=== PATIENT | male | born 1980 | race Caucasian/White ===

== ENCOUNTER 2018-03-19 14:58 | Emergency (ER) | payer BC, SELFPAY ==
[2018-03-19 15:23] VITALS: BP 117/77; PULSE 84; RESP 18; TEMP 37.2; O2SAT 97; BMI 31.5
--- NOTE | 2018-03-19 15:38 | DI.RAD.S_ITS ---
PROCEDURE: XR KNEE RT 3V INDICATIONS: hot swollen knee. TECHNIQUE: 3 views of the knee were acquired. COMPARISON: None. FINDINGS: Bones: No fractures or dislocations. No suspicious bony lesions. Soft tissues: No joint effusion. No suspicious soft tissue calcifications. Mild medial soft tissue swelling is seen. IMPRESSION: Mild medial right knee soft tissue swelling. No right knee fracture or dislocation. No bony erosive changes. No significant joint effusion. Dictated by: Medhat Marte M.D. on 03/19/2018 at 16:01 Approved by: Medhat Marte M.D. on 03/19/2018 at 16:02
[2018-03-19 16:17] LABS: Add Manual Diff / Slide Review NO; Basophils Percent Auto 0.6 % (0-2); Eosinophils Percent Auto 3.4 % (2-4); Hematocrit 46.2 % (41-53); Lymphocytes Percent Auto 22.4 % (25-40); Mean Corpuscular HGB Conc 34.6 % (30-36); Mean Corpuscular Hemoglobin 29.4 PG (26-34); Monocytes Percent Auto 5.2 % (3-14); Neutrophils Absolute Auto 10100 /uL (3000-5900); Neutrophils Percent Auto 68.4 % (50-75); Platelet Count 289 X10^3/uL (150-400); Red Blood Cell Count 5.44 X10^6/uL (4.5-5.9); Red Cell Distribution Width 13.4 % (11.6-14.8); White Blood Cell Count 14.8 X10^3/uL (4.5-11.0)
[2018-03-19 16:27] LABS: Blood Urea Nitrogen 18 mg/dL (9-20); C-Reactive Protein Quant 1.2 mg/dL (<1.0); Calcium 9.9 mg/dL (8.4-10.2); Carbon Dioxide 28 mmol/L (22-32); Chloride 103 mmol/L (98-107); Estimated Glomerular Filt Rate > 60.0 mL/min (>60); Glucose 107 mg/dL (70-100); HEMOLYSIS 18 (0-50); Sodium 143 mmol/L (137-145); Uric Acid 6.6 mg/dL (3.5-8.5)
[2018-03-19 16:46] LABS: Procalcitonin < 0.05 ng/mL (<0.5)
[2018-03-19 16:47] LABS: Erythrocyte Sedimentation Rate 1 MM/HR (0-15)
--- NOTE | 2018-03-19 18:51 | ED_ITS ---
HPI - Skin/Abscess/Foreign Bdy <YEFRI Dixon - Last Filed: 03/19/18 22:18> General Chief complaint: Skin/Abscess/Foreign Body Stated complaint: RASH AND SWOLLEN RT KNEE Time Seen by Provider: 03/19/18 18:00 Source: patient Mode of arrival: ambulatory Limitations: no limitations History of Present Illness HPI narrative: 37-year-old male with history of Burkitt's lymphoma as a nonsmoker here for complaint of rash redness to his right knee over the past 3 days this. He denies any trauma to right knee pain fevers no chills. He states it feels warm to touch to the right and is itchy at times. He states that he used Benadryl and it has not helped much. He has full range of motion motion of the right knee. He denies any pain into the area. He is ambulatory into the emergency the room. He denies any other concerns or complaints. Related Data Previous Rx's Medication Instructions Recorded clindamycin HCl 300 mg PO QID #28 cap 03/19/18 Allergies Allergy/AdvReac Type Severity Reaction Status Date / Time hydromorphone [From DILAUDID] Allergy Mild Hives Verified 03/19/18 15:27 Review of Systems <YEFRI Dixon - Last Filed: 03/19/18 22:18> Constitutional Denies chills, Denies fever(s), Denies lethargy and Denies weakness Eyes Denies change in vision, Denies eye discharge, Denies irritation and Denies loss of vision ENT Ears, Nose, Mouth, and Throat: Denies change in voice, Denies neck pain and Denies sore throat Cardiovascular Denies chest pain, Denies irregular heart rhythm, Denies lightheadedness, Denies palpitations, Denies dyspnea, Denies dyspnea on exertion and Denies orthopnea Respiratory Denies cough, Denies dyspnea, Denies dyspnea on exertion and Denies wheezing Gastrointestinal Gastrointestinal: Denies abdominal pain, Denies change in bowel habits, Denies diarrhea, Denies nausea and Denies vomiting Genitourinary Denies hematuria, Denies flank pain, Denies urinary incontinence and Denies urinary urgency Musculoskeletal Denies neck pain Integumentary/Breasts Comments: Redness to right knee Neurologic Denies confusion, Denies loss of vision and Denies weakness Psychiatric Denies anxiety, Denies confusion, Denies depression, Denies homicidal ideation and Denies suicidal ideation Endocrine Denies palpitations Allergic/Immunologic Denies wheezing Exam <YEFRI Dixon - Last Filed: 03/19/18 22:18> Initial Vital Signs Initial Vital Signs: Vital Signs Temperature 99.0 F 03/19/18 15:23 Pulse Rate 84 03/19/18 15:23 Respiratory Rate 18 03/19/18 15:23 Blood Pressure 117/77 03/19/18 15:23 Pulse Oximetry 97 03/19/18 15:23 Const General: cooperative and well developed Nutritional Appearance: well nourished Orientation: alert, awake, oriented x3 and not confused HENMT Mouth: oral mucosae normal and moist mucous membranes Eyes Conjunctivae: conjunctivae normal Sclera: sclerae normal Pupils: PERRL EOM: EOM intact bilaterally Resp Effort & Inspection: normal respiratory effort, able to speak in complete sentences, no respiratory distress and no use of accessory muscles Auscultation: clear to auscultation bilaterally, no rales, no rhonchi and no wheezes Cardio Rate: regular rate Rhythm: regular rhythm Heart Sounds: no click, no gallops, no murmurs and no rubs Pulses: normal peripheral pulses GI Inspection: non-distended Palpation: soft, no hepatosplenomegaly, No guarding, No pulsatile mass and No tender Auscultation: normal bowel sounds Skin General: no rashes or lesions noted, No jaundice and No petechiae Other: Neuro General: alert, oriented x3, gait normal and no focal motor deficits Speech: speech normal Extrem General: full ROM, no clubbing, cyanosis or edema, no pedal edema and no calf tenderness Other: redness and approximately 6 in diameter circular area to medial left knee area. No open lesions. Full range of motion of the right knee right knee is not tender. Distal CMS is intact. <Vance Beebe DO - Last Filed: 03/19/18 23:21> Initial Vital Signs Initial Vital Signs: Vital Signs Temperature 99.0 F 03/19/18 15:23 Pulse Rate 84 03/19/18 15:23 Respiratory Rate 18 03/19/18 15:23 Blood Pressure 117/77 03/19/18 15:23 Pulse Oximetry 97 03/19/18 15:23 Course <YEFRI Dixon - Last Filed: 03/19/18 22:18> Orders Ordered: ED Orders 03/19/18 15:38 XR knee RT 3V Stat 03/19/18 15:55 Erythrocyte Sedimentation Rate Stat Procalcitonin Stat 03/19/18 16:00 Basic Metabolic Panel Stat C-Reactive Protein Quant Stat Complete Blood Count AUTO DIFF Stat Uric Acid Stat Vital Signs - 8 hr 03/19/18 15:23 03/19/18 20:09 Temperature 99.0 F 98.5 F Pulse Rate 84 76 Respiratory Rate 18 18 Blood Pressure 117/77 125/81 Pulse Oximetry 97 94 <Vance Beebe DO - Last Filed: 03/19/18 23:21> Orders Ordered: ED Orders 03/19/18 15:38 XR knee RT 3V Stat 03/19/18 15:55 Erythrocyte Sedimentation Rate Stat Procalcitonin Stat 03/19/18 16:00 Basic Metabolic Panel Stat C-Reactive Protein Quant Stat Complete Blood Count AUTO DIFF Stat Uric Acid Stat Vital Signs - 8 hr 03/19/18 15:23 03/19/18 20:09 Temperature 99.0 F 98.5 F Pulse Rate 84 76 Respiratory Rate 18 18 Blood Pressure 117/77 125/81 Pulse Oximetry 97 94 MDM - Skin/Abscess/Foreign Bdy <YEFRI Dixon - Last Filed: 03/19/18 22:18> Lab Data Result diagrams: 03/19/18 16:00 03/19/18 16:00 Lab Results 03/19/18 03/19/18 03/19/18 Range/Units 15:55 15:55 15:55 WBC (4.5-11.0) X10^3/uL RBC (4.5-5.9) X10^6/uL Hgb (13.5-17.5) g/dL Hct (41-53) % MCV (80-100) fL MCH (26-34) PG MCHC (30-36) % RDW (11.6-14.8) % Plt Count (150-400) X10^3/uL Neut % (Auto) (50-75) % Lymph % (Auto) (25-40) % [place] % (Auto) (3-14) % Eos % (Auto) (2-4) % Baso % (Auto) (0-2) % Neut # (Auto) (8317-8963) /uL ESR 1 (0-15) MM/HR Sodium (137-145) mmol/L Potassium (3.4-5.1) mmol/L Chloride (98-107) mmol/L Carbon Dioxide (22-32) mmol/L BUN (9-20) mg/dL Creatinine (0.66-1.25) mg/dL Estimated GFR (>60) mL/min BUN/Creatinine Ratio (6-22) Glucose (70-100) mg/dL Uric Acid (3.5-8.5) mg/dL Calcium (8.4-10.2) mg/dL C-Reactive Protein Cancelled Procalcitonin < 0.05 (<0.5) ng/mL 03/19/18 03/19/18 Range/Units 16:00 16:00 WBC 14.8 H (4.5-11.0) X10^3/uL RBC 5.44 (4.5-5.9) X10^6/uL Hgb 16.0 (13.5-17.5) g/dL Hct 46.2 (41-53) % MCV 85.0 (80-100) fL MCH 29.4 (26-34) PG MCHC 34.6 (30-36) % RDW 13.4 (11.6-14.8) % Plt Count 289 (150-400) X10^3/uL Neut % (Auto) 68.4 (50-75) % Lymph % (Auto) 22.4 L (25-40) % [place] % (Auto) 5.2 (3-14) % Eos % (Auto) 3.4 (2-4) % Baso % (Auto) 0.6 (0-2) % Neut # (Auto) 39193 H (8343-6264) /uL ESR (0-15) MM/HR Sodium 143 (137-145) mmol/L Potassium 4.0 (3.4-5.1) mmol/L Chloride 103 (98-107) mmol/L Carbon Dioxide 28 (22-32) mmol/L BUN 18 (9-20) mg/dL Creatinine 0.90 (0.66-1.25) mg/dL Estimated GFR > 60.0 (>60) mL/min BUN/Creatinine Ratio 20.0 (6-22) Glucose 107 H (70-100) mg/dL Uric Acid 6.6 (3.5-8.5) mg/dL Calcium 9.9 (8.4-10.2) mg/dL C-Reactive Protein 1.2 H Procalcitonin (<0.5) ng/mL MDM Narrative Medical decision making narrative: Redness to the medial aspect of the right knee is warm to touch. A presents as cellulitis however Itchiness is atypical. Will cover with clindamycin. Follow-up primary care provider the next couple days for re-evaluation. Differential of Dermatitis versus viral etiology. for any worsening symptoms return to the emergency room. <Vance Beebe, DO - Last Filed: 03/19/18 23:21> Lab Data Lab Results 03/19/18 03/19/18 03/19/18 Range/Units 15:55 15:55 15:55 WBC (4.5-11.0) X10^3/uL RBC (4.5-5.9) X10^6/uL Hgb (13.5-17.5) g/dL Hct (41-53) % MCV (80-100) fL MCH (26-34) PG MCHC (30-36) % RDW (11.6-14.8) % Plt Count (150-400) X10^3/uL Neut % (Auto) (50-75) % Lymph % (Auto) (25-40) % [place] % (Auto) (3-14) % Eos % (Auto) (2-4) % Baso % (Auto) (0-2) % Neut # (Auto) (3736-2245) /uL ESR 1 (0-15) MM/HR Sodium (137-145) mmol/L Potassium (3.4-5.1) mmol/L Chloride (98-107) mmol/L Carbon Dioxide (22-32) mmol/L BUN (9-20) mg/dL Creatinine (0.66-1.25) mg/dL Estimated GFR (>60) mL/min BUN/Creatinine Ratio (6-22) Glucose (70-100) mg/dL Uric Acid (3.5-8.5) mg/dL Calcium (8.4-10.2) mg/dL C-Reactive Protein Cancelled Procalcitonin < 0.05 (<0.5) ng/mL 03/19/18 03/19/18 Range/Units 16:00 16:00 WBC 14.8 H (4.5-11.0) X10^3/uL RBC 5.44 (4.5-5.9) X10^6/uL Hgb 16.0 (13.5-17.5) g/dL Hct 46.2 (41-53) % MCV 85.0 (80-100) fL MCH 29.4 (26-34) PG MCHC 34.6 (30-36) % RDW 13.4 (11.6-14.8) % Plt Count 289 (150-400) X10^3/uL Neut % (Auto) 68.4 (50-75) % Lymph % (Auto) 22.4 L (25-40) % [place] % (Auto) 5.2 (3-14) % Eos % (Auto) 3.4 (2-4) % Baso % (Auto) 0.6 (0-2) % Neut # (Auto) 88303 H (9241-3974) /uL ESR (0-15) MM/HR Sodium 143 (137-145) mmol/L Potassium 4.0 (3.4-5.1) mmol/L Chloride 103 (98-107) mmol/L Carbon Dioxide 28 (22-32) mmol/L BUN 18 (9-20) mg/dL Creatinine 0.90 (0.66-1.25) mg/dL Estimated GFR > 60.0 (>60) mL/min BUN/Creatinine Ratio 20.0 (6-22) Glucose 107 H (70-100) mg/dL Uric Acid 6.6 (3.5-8.5) mg/dL Calcium 9.9 (8.4-10.2) mg/dL C-Reactive Protein 1.2 H Procalcitonin (<0.5) ng/mL Discharge Plan Departure Patient Disposition: Home Clinical Impression: Cellulitis of knee, right Discharge Date/Time: 03/19/18 20:10 Interventions: ED Discharge Assessment Last Done: 03/19/18 20:09 Instructions: DI for Cellulitis -- Adult Activity Restrictions/Additional Instructions: redness and heat to the right knee is consistent with cellulitis. Atypical is the itch that you have. Will treat for cellulitis with antibiotic. Follow up with primary care provider in the next few days for re-evaluation. Differential of dermatitis versus viral etiology. For any worsening symptoms return to the emergency room. Prescriptions: New clindamycin HCl 300 mg capsule 300 mg PO QID Qty: 28 RF: 0 Referrals: Dustin Knox MD [Primary Care Provider] - <Vance Beebe DO - Last Filed: 03/19/18 23:21> Cosign ED Attending Sumiature Attestation: I was immediately available in the department for consultation. Documentation has been reviewed. I agree with assessment and plan.
[2018-03-19 20:09] VITALS: BP 125/81; PULSE 76; RESP 18; TEMP 36.9; O2SAT 94
== END 2018-03-19 20:10 | disposition home or self-care (01) ==
PROVIDERS: Emergency Provider Nurse Practitioner Family; Family Provider Family Medicine; PCP Family Medicine
DX: L03.115 Cellulitis of right lower limb (principal)
CPT/HCPCS: 36415; 73562; 80048; 84145; 84550; 85025; 85651; 86140; 99282; 99284

== ENCOUNTER → 2018-09-18 12:02 | Outpatient (CLI) | payer BC, SELFPAY ==
[2018-09-18 13:24] LABS: Add Manual Diff / Slide Review NO; Basophils Absolute Auto 0 /uL (0-100); Basophils Percent Auto 0.4 % (0-2); Eosinophils Absolute Auto 300 /uL (0-450); Eosinophils Percent Auto 3.2 % (2-4); Hematocrit 44.9 % (41-53); Hemoglobin 15.4 g/dL (13.5-17.5); Lymphocytes Absolute Auto 2700 /uL (1100-4500); Lymphocytes Percent Auto 25.6 % (25-40); Mean Corpuscular HGB Conc 34.3 % (30-36); Mean Corpuscular Hemoglobin 29.6 PG (26-34); Mean Corpuscular Volume 86.4 fL (80-100); Monocytes Absolute Auto 600 /uL (0-900); Monocytes Percent Auto 5.6 % (3-14); Neutrophils Absolute Auto 6700 /uL (1500-7000); Neutrophils Percent Auto 65.2 % (50-75); Platelet Count 291 X10^3/uL (150-400); Red Blood Cell Count 5.19 X10^6/uL (4.5-5.9); Red Cell Distribution Width 12.9 % (11.6-14.8); White Blood Cell Count 10.4 X10^3/uL (4.5-11.0)
[2018-09-21 14:53] LABS: Immunoglobulin G, Quantitative 203 mg/dL (694-1618)
== END ==
PROVIDERS: Visit Provider Internal Medicine
DX: C83.70 Burkitt lymphoma, unspecified site (principal); D80.1 Nonfamilial hypogammaglobulinemia
CPT/HCPCS: 36415; 82784; 85025

== ENCOUNTER → 2019-01-26 10:45 | Outpatient (CLI) | payer BC, SELFPAY ==
[2019-01-26 11:41] LABS: Add Manual Diff / Slide Review NO; Basophils Absolute Auto 100 /uL (0-100); Basophils Percent Auto 0.4 % (0-2); Eosinophils Absolute Auto 300 /uL (0-450); Eosinophils Percent Auto 2.1 % (2-4); Hematocrit 45.5 % (41-53); Hemoglobin 15.3 g/dL (13.5-17.5); Lymphocytes Absolute Auto 2900 /uL (1100-4500); Lymphocytes Percent Auto 22.2 % (25-40); Mean Corpuscular HGB Conc 33.7 % (30-36); Mean Corpuscular Hemoglobin 29.4 PG (26-34); Mean Corpuscular Volume 87.5 fL (80-100); Monocytes Absolute Auto 700 /uL (0-900); Monocytes Percent Auto 5.2 % (3-14); Neutrophils Absolute Auto 9300 /uL (1500-7000); Neutrophils Percent Auto 70.1 % (50-75); Platelet Count 300 X10^3/uL (150-400); Red Cell Distribution Width 13.7 % (11.6-14.8); White Blood Cell Count 13.2 X10^3/uL (4.5-11.0)
[2019-01-26 12:03] LABS: Alanine Aminotransferase 27 IU/L (21-72); Albumin 4.7 g/dL (3.5-5.0); Albumin Globulin Ratio 2.2 (1.0-2.8); Alkaline Phosphatase 98 U/L (38-126); Aspartate Aminotransferase 23 IU/L (17-59); BUN Creatinine Ratio 14.3 (6-22); Bilirubin Total 0.5 mg/dL (0.2-1.3); Blood Urea Nitrogen 10 mg/dL (9-20); Calcium 9.6 mg/dL (8.4-10.2); Carbon Dioxide 29 mmol/L (22-32); Chloride 101 mmol/L (98-107); Estimated Glomerular Filt Rate > 60.0 mL/min (>60); Globulin 2.1 g/dL (1.7-4.1); Glucose 93 mg/dL (70-100); HEMOLYSIS 28 (0-50); Lactate Dehydrogenase 456 U/L (313-618); Potassium 4.3 mmol/L (3.4-5.1); Sodium 142 mmol/L (137-145); Total Protein 6.8 g/dL (6.3-8.2)
== END ==
PROVIDERS: PCP Internal Medicine; Visit Provider Internal Medicine
DX: Z85.72 Personal history of non-Hodgkin lymphomas (principal); R22.1 Localized swelling, mass and lump, neck
CPT/HCPCS: 36415; 80053; 83615; 85025

== ENCOUNTER → 2019-01-27 14:34 | Outpatient (CLI) | payer BC, SELFPAY ==
--- NOTE | 2019-01-27 | DI.CT.S_ITS ---
PROCEDURE: CT SOFT TISSUE NECK W CON INDICATIONS: personal hx of non-hogkins lymphoma TECHNIQUE: After the administration of intravenous contrast, 3.0 mm axial sections acquired from the sella to the aortic arch. Additional oblique axial 3.0 mm sections acquired through the pharynx. 3 mm thick coronal and sagittal reformats were generated. For radiation dose reduction, the following was used: automated exposure control. COMPARISON: None. FINDINGS: Image quality: Excellent. Lymph nodes: Numerous bilateral enlarged cervical lymph nodes are seen. The largest is seen at level III just inferior to the hyoid bone on the left, which corresponds to the palpable abnormality. This is seen deep to the sternocleidomastoid muscle measures 2.2 x 1.6 cm in greatest axial dimension, with a craniocaudal extent of 2.8 cm. Vessels: Visualized vasculature appears patent. Neck spaces: The oropharynx, nasopharynx, and pharynx demonstrate no mucosal lesions. The vocal cords, false vocal cords, pyriform sinuses, epiglottis, vallecula, and tongue base all appear normal. Extramucosal spaces appear unremarkable. Glands: The parotid and submandibular glands appear normal. Thyroid gland demonstrates no significant CT abnormality. Miscellaneous: Visualized brain and orbits appear normal. Lung apices appear clear. Superficial soft tissues appear normal. Bones: No suspicious bony lesions. Visualized sinuses and mastoids appear unremarkable. IMPRESSION: Abnormally enlarged lymph nodes seen throughout the neck with the largest lymph node corresponding to the palpable abnormality. Although lymph nodes with this appearance can be reactive in a patient of this age, concern is raised for lymphoma. Please consider a biopsy of a lymph node. If it would be helpful for clinical management decision making, please consider a dedicated CT of the chest, abdomen, and pelvis for evaluation of additional lymph nodes. Dictated by: Lucho Thornton M.D. on 01/27/2019 at 16:09 Approved by: Lucho Thornton M.D. on 01/27/2019 at 16:14
== END ==
PROVIDERS: Family Provider Internal Medicine Hematology & Oncology; PCP Internal Medicine; Visit Provider Internal Medicine
DX: R59.9 Enlarged lymph nodes, unspecified (principal); Z85.72 Personal history of non-Hodgkin lymphomas
CPT/HCPCS: 70491

== ENCOUNTER → 2019-02-04 12:03 | Outpatient (CLI) | payer BC, SELFPAY ==
--- NOTE | 2019-02-04 12:42 | DI.CT.S_ITS ---
PROCEDURE: CT CHEST ABD PEL W CON INDICATIONS: lymph node enlargment, h/o Burkit lymphoma TECHNIQUE: After the administration of intravenous contrast, 5 mm thick sections acquired from the lung apices to the symphysis. 5 mm coronal and sagittal reformats were performed, with additional 7 mm MIP reformats through the lungs. For radiation dose reduction, the following was used: automated exposure control, adjustment of mA and/or kV according to patient size. COMPARISON: [facility], CT, ABDOMEN/PELVIS WITH CONTRAST, 05/15/2016, 16:24. [facility], CT, CHEST/ABD/PEL WITH CONTRAST, 02/22/2014, 10:24. [facility], CT, CHEST/ABD/PEL WITH CONTRAST, 09/07/2013, 22:11. FINDINGS: Image quality: Diagnostic. CHEST: Lungs and pleura: There are groundglass areas of nodularity identified within the right upper lobe and the left lower lobe (image 36, 39, and 54; series 2). These areas of groundglass attenuation were not apparent on the previous CT from 2013. No definite solid nodules are identified. No masses are appreciated. Otherwise, the lungs are well aerated. No focal consolidation, effusion, or pneumothorax is identified. Mediastinum: Heart size is normal. No pericardial effusion. No mediastinal or hilar adenopathy by size criteria. Thoracic aorta and central pulmonary arteries are normal in size. Esophagus is normal in caliber. No hiatal hernia. Chest wall and bones: No axillary or supraclavicular adenopathy by size criteria. Thyroid gland is not enlarged or inflamed. No displaced fractures or dislocations are evident. No suspicious osseous lesions are present. There are mild degenerative changes of the cervical and thoracic spine, not well characterized. ABDOMEN: Solid organs: The liver is diffusely hypodense when compared to the spleen. No definite liver lesions are appreciated. The patient has had a prior cholecystectomy. There is no intrahepatic or extrahepatic biliary dilatation. The spleen, adrenals, and pancreas are within normal limits. The kidneys are unremarkable. There is no hydronephrosis. No renal calculi are evident. No renal lesions are appreciated. Peritoneum and bowel: The stomach and duodenum are within normal limits. The small bowel loops are nondilated. The appendix is well-visualized and normal in size. The colon is relatively decompressed, but is grossly unremarkable. No free fluid or loculated fluid collections are present. There is no free air. Nodes and vessels: No retroperitoneal or mesenteric adenopathy by size criteria. However, multiple small borderline prominent ileocolic lymph nodes are identified. Aorta and inferior vena cava are normal in size. Bones: Mild degenerative changes of the lumbar spine are present. No acute fractures or suspicious osseous lesions are identified. PELVIS: Genitourinary: Bladder wall thickness is normal. Prominent distention of the urinary bladder wall is present. Miscellaneous: There is a small fat containing left inguinal hernia. No pelvic adenopathy is evident. No free fluid or loculated fluid collection is identified. Bones: No suspicious bony lesions. No acute fractures are evident. No suspicious osseous lesions are identified. Bone islands involving the proximal left femur are incidentally noted. There may be mild degenerative changes of the sacroiliac joints. Partial fusion of the left L5 transverse process with the adjacent sacral ala is present, which can potentially be a source for pain, in the correct clinical setting. IMPRESSION: 1. Small to moderate-sized ileocolic lymph nodes within the right lower quadrant are of doubtful significance. Please consider [address] imaging of the abdomen and pelvis for further evaluation with oral and intravenous contrast. 2. No convincing evidence to suggest metastatic disease or tumor recurrence. 3. Ground glass attenuation within the lung bases probably is related to atelectasis or atypical infection. However, other etiologies cannot be excluded and followup CT imaging of the chest and 3 months is recommended. 4. Hepatic steatosis. 5. Prominent distention of the urinary bladder probably is intentional. Please correlate clinically. Dictated by: Eleno Orozco M.D. on 02/04/2019 at 13:11 Approved by: Eleno Orozco M.D. on 02/04/2019 at 13:42
== END ==
PROVIDERS: PCP Internal Medicine; Visit Provider Internal Medicine Hematology & Oncology
DX: R59.0 Localized enlarged lymph nodes (principal); Z85.79 Personal history of other malignant neoplasms of lymphoid, hematopoietic and related tissues
CPT/HCPCS: 71260; 74177; Q9967

== ENCOUNTER → 2019-02-14 09:40 | Oncology outpatient (ONC) | payer BC, SELFPAY ==
--- NOTE | 2019-01-31 09:20 | P.CONONC_ITS ---
History of Present Illness - Data of Consult Consult date: 01/31/19 Requesting Physician: Olu Bermudez MD Primary Care Provider: Olu Bermudez MD - Consult Narrative Reason for consult: Neck lymph node enlargement Narrative: Arsen Chau is a 38 year old male with history of advanced stage Burkitt's lymphoma who completed therapy with hyper CVAD rituximab chemo immunotherapy in March 2014. Patient achieved complete remission and has been followed at [facility] by Dr. yolanda cameron. More the most recent visit with Dr. Erazo was about 3 months ago. About one month ago, he developed left neck pain. He said he felt tight when turning to the right side. And about 2 weeks ago, he noticed enlargement of the lymph nodes on the left side of the neck. He denies any fever or chills. No night sweats. Patient does report some weight loss of about 25 lb since June which he attributed to being on diet and exercise. He denies any shortness of breath or chest pain, denies any abdominal pain, denies diarrhea or constipation. He called Dr. Bermudez. A CT soft tissue neck with contrast was performed on 01/27/2019 that showed abnormally enlarged lymph nodes throughout the neck with the largest lymph node at level 3 just inferior to the hyoid bone on the left measuring 2.2 x 1.6 cm in greatest axial dimension with a craniocaudal extent of 2.[address] of the chest abdomen and pelvis for evaluation of additional lymph nodes was recommended. 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 He is received IVIG about every 3 months. CC: Kj Betancourt MD Home Medications and Allergies Home Medications Medication Instructions Recorded Confirmed Type Multiple Vitamins 1 cap DAILY 01/31/19 01/31/19 History Allergies Allergy/AdvReac Type Severity Reaction Status Date / Time hydromorphone [From DILAUDID] Allergy Mild Hives Verified 11/26/18 12:52 Medical History - Medical, Surgical, Family History Medical History: Medical History (Updated 01/31/19 @ 10:42 by Kj Betancourt MD) Burkitt lymphoma Dryness of eyelid Surgical History: Surgical History (Updated 01/31/19 @ 10:11 by Kj Betancourt MD) S/P cholecystectomy - Social History Smoking Status: Never smoker Review of Systems All systems PM: reviewed and no additional remarkable complaints except as stated Exam Vital signs: Last Vital Signs Temp 98.2 F 01/31/19 09:38 Pulse 67 01/31/19 09:38 Resp 18 01/31/19 09:38 BP 112/77 01/31/19 09:38 Pulse Ox 98 01/31/19 09:38 Narrative: Gen: WDWN, NAD, pleasant and cooperative. HEENT: NCAT, EOMI, PERRLA, anicteric sclera. Neck: Supple, palpable lymphadenopathy in the left neck, largest 1x 2 cm level II/III Respiratory: CTAB, no wheezes audible. No JVD Cardiovascular: RRR, S1 and S2 normal, no M/G/R. Abdomen: Soft, NTND, BS normal, no palpable organomegaly Extremities: No LE pitting edema. Lymphatic: no palpable lymph nodes in the neck, axillae, or groins. Neurological: AOx3, CN II-XII grossly intact. No focal motor or sensory deficit. Psychiatric: Good judgment and insight; normal affect; normal thought process; cooperative, no depression, no anxiety. Results - Labs Pending - Imaging Additional studies: Procedures Biopsy of lymphatic structure (09/02/13) Esophagogastroduodenoscopy [EGD] with closed biopsy (09/02/13) Injection of other agent into spinal canal (10/31/13) Injection or infusion of cancer chemotherapeutic substance (10/31/13) Injection or infusion of other therapeutic or prophylactic substance (08/16/13) Spinal tap (11/26/13) Transfusion of packed cells (11/26/13) Transfusion of platelets (11/26/13) Assessment and Plan (1) Enlarged lymph node in neck Left-sided neck lymph nodes enlargement with tenderness and CT imaging evidence of lymphadenopathy throughout the neck. Given previous history of a Burkitt's lymphoma, it is suspicious. I will proceed with CT of the chest abdomen pelvis to further evaluate if there is any lymphadenopathy in other parts of the body. After the scan, we will see the patient and decide on the biopsy of the lymph node. Patient voiced understanding. (2) History of Burkitt's lymphoma History of advanced stage Burkitt's lymphoma who completed therapy with hyper CVAD rituximab chemo immunotherapy in March 2014. Patient achieved complete r emission and has been followed at [facility] by Dr. yolanda cameron. More the most recent visit with Dr. Erazo was about 3 months ago. (3) Hypogammaglobulinemia, acquired About 1 year ago, he was found to have hypogammoglobulinemia. The most recent quantitative evaluation was on August 2018. The immunoglobulin level was 203. Patient has not received any immunoglobulin infusion recently. He said he found out that exercise and weight loss has helped a lot and he does not have any symptoms. I talked with him that I will repeat the quantitative immunoglobulin levels and will decide on if patient will need IVIG infusion. I talked with him that the threshold for infusion is immunoglobulin G less than 400. Patient voiced understanding.
[2019-01-31 09:38] VITALS: BP 112/77; PULSE 67; RESP 18; TEMP 36.8; O2SAT 98
--- NOTE | 2019-02-01 08:47 | ONC.MSW ---
Description: Pre-Auth for chest/abdom/pelvis CT Activity: Called pre-cert line to determine which diagnoses codes this insurance company will accept for the CT that Dr. Betancourt has ordered. After a lengthy call, they still found this CT request to not meet medical necessity. RESIDENT C[employer] MANAGER discussed this with Dr. Betancourt, and explained that he will need to call and do a peer-peer in order to determine if this can be approved on that level. Provided the phone number and supporting documents to Dr. Betancourt to f/u.
--- NOTE | 2019-02-01 10:18 | ONC.SCHED ---
Gave Margoth Jiménez the info to get the CT authorized and she will give back to me to get it scheduled. I can't do anything on that until the doctor does a peer to peer with the insurance company.
--- NOTE | 2019-02-01 10:26 | ONC.SCHED ---
Faxed chart notes to [employer] to do prior auth on the [facility] genetic lab Dr. Betancourt is requesting.
--- NOTE | 2019-02-02 10:42 | ONC.SCHED ---
patient is scheduled now for CT per the peer to peer auth done by Dr. Betancourt. Still waiting on prior auth for genetic lab.
[2019-02-08 10:51] LABS: Add Manual Diff / Slide Review NO; Basophils Absolute Auto 0 /uL (0-100); Basophils Percent Auto 0.3 % (0-2); Eosinophils Absolute Auto 300 /uL (0-450); Eosinophils Percent Auto 2.7 % (2-4); Hematocrit 44.9 % (41-53); Hemoglobin 15.2 g/dL (13.5-17.5); Lymphocytes Absolute Auto 2900 /uL (1100-4500); Lymphocytes Percent Auto 23.6 % (25-40); Mean Corpuscular HGB Conc 33.9 % (30-36); Mean Corpuscular Hemoglobin 29.6 PG (26-34); Mean Corpuscular Volume 87.4 fL (80-100); Monocytes Absolute Auto 700 /uL (0-900); Monocytes Percent Auto 5.3 % (3-14); Neutrophils Absolute Auto 8400 /uL (1500-7000); Neutrophils Percent Auto 68.1 % (50-75); Platelet Count 283 X10^3/uL (150-400); Red Blood Cell Count 5.14 X10^6/uL (4.5-5.9); Red Cell Distribution Width 13.5 % (11.6-14.8); White Blood Cell Count 12.3 X10^3/uL (4.5-11.0)
[2019-02-08 11:20] LABS: Alanine Aminotransferase 19 IU/L (21-72); Albumin 4.5 g/dL (3.5-5.0); Albumin Globulin Ratio 2.4 (1.0-2.8); Alkaline Phosphatase 84 U/L (38-126); Aspartate Aminotransferase 15 IU/L (17-59); BUN Creatinine Ratio 17.5 (6-22); Bilirubin Total 0.6 mg/dL (0.2-1.3); Blood Urea Nitrogen 14 mg/dL (9-20); Carbon Dioxide 26 mmol/L (22-32); Chloride 103 mmol/L (98-107); Estimated Glomerular Filt Rate > 60.0 mL/min (>60); Globulin 1.9 g/dL (1.7-4.1); Glucose 91 mg/dL (70-100); HEMOLYSIS < 15 (0-50); Lactate Dehydrogenase 336 U/L (313-618); Potassium 4.6 mmol/L (3.4-5.1); Sodium 141 mmol/L (137-145); Total Protein 6.4 g/dL (6.3-8.2)
[2019-02-14 09:12] VITALS: BP 116/71; PULSE 56; RESP 16; TEMP 36.8; O2SAT 99
--- NOTE | 2019-02-14 09:15 | ONC.PN ---
PN -Subjective Interval history: 38 year old male here for follow up visit to review CT results Oncology History: Arsen Chau is a 38 year old male with history of advanced stage Burkitt's lymphoma who completed therapy with hyper CVAD/Rituximab chemo-immunotherapy in 2013. Patient achieved complete remission and has been followed at [facility] by Dr. Erazo. About in December,, he developed left neck pain and then he noticed enlargement of the lymph nodes on the left side of the neck. He denies any fever or chills. No night sweats. Patient does report some weight loss of about 25 lb since June which he attributed to being on diet and exercise. He denies any shortness of breath or chest pain, denies any abdominal pain, denies diarrhea or constipation. He called Dr. Bermudez. A CT soft tissue neck with contrast was performed on 01/27/2019 that showed abnormally enlarged lymph nodes throughout the neck with the largest lymph node at level 3 just inferior to the hyoid bone on the left measuring 2.2 x 1.6 cm in greatest axial dimension with a craniocaudal extent of 2.[address] of the chest abdomen and pelvis for evaluation of additional lymph nodes was recommended. About in 2017, he was found to have hypogammoglobulinema. He is received IVIG about every 3 months. Interim Events: Patient underwent CT of the chest abdomen and pelvis 02/04/2019 for further evaluation of possible recurrence of his known Burkitt's lymphoma. Remarkably, the scans showed no convincing evidence to suggest disease recurrence or metastasis. There are small to moderate sized ileocolic lymph nodes within the right lower quadrant which are deemed of doubtful significance. Three months follow-up CT scans are recommended. Clinically patient does not have any new signs or symptoms. Patient said that the lymph nodes in the neck have remained stable. - Patient Self-Reported Symptoms SR respiratory issues: Cough, Mucous SR Hematologic issues: Swollen lymph nodes - Additional ROS All systems PM: reviewed and no additional remarkable complaints except as stated Home Medications and Allergies Home Medications Medication Instructions Recorded Confirmed Type Multiple Vitamins 1 cap DAILY 01/31/19 02/14/19 History Allergies Allergy/AdvReac Type Severity Reaction Status Date / Time hydromorphone [From DILAUDID] Allergy Mild Hives Verified 11/26/18 12:52 Exam Vital signs: Vital Signs Temp Pulse Resp BP Pulse Ox 02/14/19 09:12 98.3 F 56 L 16 116/71 99 Intake and Output 02/13/19 02/14/19 02/14/19 23:59 07:59 15:59 Other: Weight 91 kg Patient Weight 02/14/19 23:59 Weight 91 kg Narrative: Gen: WDWN, NAD, pleasant and cooperative. HEENT: NCAT, EOMI, PERRLA, anicteric sclera. Neck: Supple, palpable lymphadenopathy in the left neck, largest 1x 2 cm level II/III Respiratory: CTAB, no wheezes audible. No JVD Cardiovascular: RRR, S1 and S2 normal, no M/G/R. Abdomen: Soft, NTND, BS normal, no palpable organomegaly Extremities: No LE pitting edema. Lymphatic: no palpable lymph nodes in the neck, axillae, or groins. Neurological: AOx3, CN II-XII grossly intact. No focal motor or sensory deficit. Psychiatric: Normal affect; normal thought process; cooperative, no depression, no anxiety. Results - Labs Laboratory Last Values WBC 12.3 X10^3/uL (4.5-11.0) H 02/08/19 10:19 RBC 5.14 X10^6/uL (4.5-5.9) 02/08/19 10:19 Hgb 15.2 g/dL (13.5-17.5) 02/08/19 10:19 Hct 44.9 % (41-53) 02/08/19 10:19 MCV 87.4 fL (80-100) 02/08/19 10:19 MCH 29.6 PG (26-34) 02/08/19 10:19 MCHC 33.9 % (30-36) 02/08/19 10:19 RDW 13.5 % (11.6-14.8) 02/08/19 10:19 Plt Count 283 X10^3/uL (150-400) 02/08/19 10:19 Neut % (Auto) 68.1 % (50-75) 02/08/19 10:19 Lymph % (Auto) 23.6 % (25-40) L 02/08/19 10:19 [place] % (Auto) 5.3 % (3-14) 02/08/19 10:19 Eos % (Auto) 2.7 % (2-4) 02/08/19 10:19 Baso % (Auto) 0.3 % (0-2) 02/08/19 10:19 Neut # (Auto) 8400 /uL (1001-5552) H 02/08/19 10:19 Lymph # (Auto) 2900 /uL (6194-9262) 02/08/19 10:19 [place] # (Auto) 700 /uL (0-900) 02/08/19 10:19 Eos # (Auto) 300 /uL (0-450) 02/08/19 10:19 Baso # (Auto) 0 /uL (0-100) 02/08/19 10:19 Sodium 141 mmol/L (137-145) 02/08/19 10:19 Potassium 4.6 mmol/L (3.4-5.1) 02/08/19 10:19 Chloride 103 mmol/L (98-107) 02/08/19 10:19 Carbon Dioxide 26 mmol/L (22-32) 02/08/19 10:19 BUN 14 mg/dL (9-20) 02/08/19 10:19 Creatinine 0.80 mg/dL (0.66-1.25) 02/08/19 10:19 Estimated GFR > 60.0 mL/min (>60) 02/08/19 10:19 BUN/Creatinine Ratio 17.5 (6-22) 02/08/19 10:19 Glucose 91 mg/dL (70-100) 02/08/19 10:19 Calcium 10.0 mg/dL (8.4-10.2) 02/08/19 10:19 Total Bilirubin 0.6 mg/dL (0.2-1.3) 02/08/19 10:19 AST 15 IU/L (17-59) L 02/08/19 10:19 ALT 19 IU/L (21-72) L 02/08/19 10:19 Alkaline Phosphatase 84 U/L (38-126) 02/08/19 10:19 Lactate Dehydrogenase 336 U/L (313-618) 02/08/19 10:19 Total Protein 6.4 g/dL (6.3-8.2) 02/08/19 10:19 Albumin 4.5 g/dL (3.5-5.0) 02/08/19 10:19 Globulin 1.9 g/dL (1.7-4.1) 02/08/19 10:19 Albumin/Globulin Ratio 2.4 (1.0-2.8) 02/08/19 10:19 Ref Test (Refrig) Cancelled 02/08/19 10:19 - Imaging Additional studies: Procedures Biopsy of lymphatic structure (09/02/13) Esophagogastroduodenoscopy [EGD] with closed biopsy (09/02/13) Injection of other agent into spinal canal (10/31/13) Injection or infusion of cancer chemotherapeutic substance (10/31/13) Injection or infusion of other therapeutic or prophylactic substance (08/16/13) Spinal tap (11/26/13) Transfusion of packed cells (11/26/13) Transfusion of platelets (11/26/13) Assessment and Plan (1) Enlarged lymph node in neck Left-sided neck lymph nodes enlargement with tenderness clinically while CT imaging showed evidence of lymphadenopathy throughout the neck bilaterally. I reviewed the most recent CT of the chest abdomen and pelvis scan with the patient. No clear or convincing evidence of lymphadenopathy in the chest abdomen and pelvis. The visible lower neck lymph nodes remained about the same compared to his previous neck CT scan. I recommended surgical consult for possible lymph node dissection. Patient said that he would like to request a second opinion with Dr. Erazo at [facility]. I completely agree and support. Plan: Second opinion with Dr. Erazo at /[facility] in one month for follow up visit (2) History of Burkitt's lymphoma History of advanced stage Burkitt's lymphoma who completed therapy with hyper CVAD rituximab chemo immunotherapy in March 2014. Patient achieved complete remission and has been followed at [facility] by Dr. Erazo. More the most recent visit with Dr. Erazo was about 3 months ago. (3) Hypogammaglobulinemia, acquired About 1 year ago, he was found to have hypogammoglobulinemia. The most recent quantitative evaluation was on August 2018. The immunoglobulin level was 203. Patient has not received any immunoglobulin infusion recently. He said he found out that exercise and weight loss has helped a lot and he does not have any symptoms. I talked with him that I will repeat the quantitative immunoglobulin levels and will decide on if patient will need IVIG infusion. I talked with him that the threshold for infusion is immunoglobulin G less than 400. Patient voiced understanding. Unfortunately, the lab I ordered was canceled which I do not know the reason. I talked with the patient that I will try to repeat when he comes back from the [facility] second opinion.
--- NOTE | 2019-02-14 09:25 | P.PNONC_ITS ---
PN -Subjective Interval history: 38 year old male here for follow up visit to review CT results Oncology History: Arsen Chau is a 38 year old male with history of advanced stage Burkitt's lymphoma who completed therapy with hyper CVAD/Rituximab chemo-immunotherapy in 2013. Patient achieved complete remission and has been followed at [facility] by Dr. Erazo. About in December,, he developed left neck pain and then he noticed enlargement of the lymph nodes on the left side of the neck. He denies any fever or chills. No night sweats. Patient does report some weight loss of about 25 lb since June which he attributed to being on diet and exercise. He denies any shortness of breath or chest pain, denies any abdominal pain, denies diarrhea or constipation. He called Dr. Bermudez. A CT soft tissue neck with contrast was performed on 01/27/2019 that showed abnormally enlarged lymph nodes throughout the neck with the largest lymph node at level 3 just inferior to the hyoid bone on the left measuring 2.2 x 1.6 cm in greatest axial dimension with a craniocaudal extent of 2.[address] of the chest abdomen and pelvis for evaluation of additional lymph nodes was recommended. About in 2017, he was found to have hypogammoglobulinema. He is received IVIG about every 3 months. Interim Events: Patient underwent CT of the chest abdomen and pelvis 02/04/2019 for further evaluation of possible recurrence of his known Burkitt's lymphoma. Remarkably, the scans showed no convincing evidence to suggest disease recurrence or metastasis. There are small to moderate sized ileocolic lymph nodes within the right lower quadrant which are deemed of doubtful significance. Three months follow-up CT scans are recommended. Clinically patient does not have any new signs or symptoms. Patient said that the lymph nodes in the neck have remained stable. - Patient Self-Reported Symptoms SR respiratory issues: Cough, Mucous SR Hematologic issues: Swollen lymph nodes - Additional ROS All systems PM: reviewed and no additional remarkable complaints except as stated Home Medications and Allergies Home Medications Medication Instructions Recorded Confirmed Type Multiple Vitamins 1 cap DAILY 01/31/19 02/14/19 History Allergies Allergy/AdvReac Type Severity Reaction Status Date / Time hydromorphone [From DILAUDID] Allergy Mild Hives Verified 11/26/18 12:52 Exam Vital signs: Vital Signs Temp Pulse Resp BP Pulse Ox 02/14/19 09:12 98.3 F 56 L 16 116/71 99 Intake and Output 02/13/19 02/14/19 02/14/19 23:59 07:59 15:59 Other: Weight 91 kg Patient Weight 02/14/19 23:59 Weight 91 kg Narrative: Gen: WDWN, NAD, pleasant and cooperative. HEENT: NCAT, EOMI, PERRLA, anicteric sclera. Neck: Supple, palpable lymphadenopathy in the left neck, largest 1x 2 cm level II/III Respiratory: CTAB, no wheezes audible. No JVD Cardiovascular: RRR, S1 and S2 normal, no M/G/R. Abdomen: Soft, NTND, BS normal, no palpable organomegaly Extremities: No LE pitting edema. Lymphatic: no palpable lymph nodes in the neck, axillae, or groins. Neurological: AOx3, CN II-XII grossly intact. No focal motor or sensory deficit. Psychiatric: Normal affect; normal thought process; cooperative, no depression, no anxiety. Results - Labs Laboratory Last Values WBC 12.3 X10^3/uL (4.5-11.0) H 02/08/19 10:19 RBC 5.14 X10^6/uL (4.5-5.9) 02/08/19 10:19 Hgb 15.2 g/dL (13.5-17.5) 02/08/19 10:19 Hct 44.9 % (41-53) 02/08/19 10:19 MCV 87.4 fL (80-100) 02/08/19 10:19 MCH 29.6 PG (26-34) 02/08/19 10:19 MCHC 33.9 % (30-36) 02/08/19 10:19 RDW 13.5 % (11.6-14.8) 02/08/19 10:19 Plt Count 283 X10^3/uL (150-400) 02/08/19 10:19 Neut % (Auto) 68.1 % (50-75) 02/08/19 10:19 Lymph % (Auto) 23.6 % (25-40) L 02/08/19 10:19 [place] % (Auto) 5.3 % (3-14) 02/08/19 10:19 Eos % (Auto) 2.7 % (2-4) 02/08/19 10:19 Baso % (Auto) 0.3 % (0-2) 02/08/19 10:19 Neut # (Auto) 8400 /uL (1872-9822) H 02/08/19 10:19 Lymph # (Auto) 2900 /uL (9492-8141) 02/08/19 10:19 [place] # (Auto) 700 /uL (0-900) 02/08/19 10:19 Eos # (Auto) 300 /uL (0-450) 02/08/19 10:19 Baso # (Auto) 0 /uL (0-100) 02/08/19 10:19 Sodium 141 mmol/L (137-145) 02/08/19 10:19 Potassium 4.6 mmol/L (3.4-5.1) 02/08/19 10:19 Chloride 103 mmol/L (98-107) 02/08/19 10:19 Carbon Dioxide 26 mmol/L (22-32) 02/08/19 10:19 BUN 14 mg/dL (9-20) 02/08/19 10:19 Creatinine 0.80 mg/dL (0.66-1.25) 02/08/19 10:19 Estimated GFR > 60.0 mL/min (>60) 02/08/19 10:19 BUN/Creatinine Ratio 17.5 (6-22) 02/08/19 10:19 Glucose 91 mg/dL (70-100) 02/08/19 10:19 Calcium 10.0 mg/dL (8.4-10.2) 02/08/19 10:19 Total Bilirubin 0.6 mg/dL (0.2-1.3) 02/08/19 10:19 AST 15 IU/L (17-59) L 02/08/19 10:19 ALT 19 IU/L (21-72) L 02/08/19 10:19 Alkaline Phosphatase 84 U/L (38-126) 02/08/19 10:19 Lactate Dehydrogenase 336 U/L (313-618) 02/08/19 10:19 Total Protein 6.4 g/dL (6.3-8.2) 02/08/19 10:19 Albumin 4.5 g/dL (3.5-5.0) 02/08/19 10:19 Globulin 1.9 g/dL (1.7-4.1) 02/08/19 10:19 Albumin/Globulin Ratio 2.4 (1.0-2.8) 02/08/19 10:19 Ref Test (Refrig) Cancelled 02/08/19 10:19 - Imaging Additional studies: Procedures Biopsy of lymphatic structure (09/02/13) Esophagogastroduodenoscopy [EGD] with closed biopsy (09/02/13) Injection of other agent into spinal canal (10/31/13) Injection or infusion of cancer chemotherapeutic substance (10/31/13) Injection or infusion of other therapeutic or prophylactic substance (08/16/13) Spinal tap (11/26/13) Transfusion of packed cells (11/26/13) Transfusion of platelets (11/26/13) Assessment and Plan (1) Enlarged lymph node in neck Left-sided neck lymph nodes enlargement with tenderness clinically while CT imaging showed evidence of lymphadenopathy throughout the neck bilaterally. I reviewed the most recent CT of the chest abdomen and pelvis scan with the patient. No clear or convincing evidence of lymphadenopathy in the chest abdomen and pelvis. The visible lower neck lymph nodes remained about the same compared to his previous neck CT scan. I recommended surgical consult for possible lymph node dissection. Patient said that he would like to request a second opinion with Dr. Erazo at [facility]. I completely agree and support. Plan: Second opinion with Dr. Erazo at /[facility] in one month for follow up visit (2) History of Burkitt's lymphoma History of advanced stage Burkitt's lymphoma who completed therapy with hyper CVAD rituximab chemo immunotherapy in March 2014. Patient achieved complete remission and has been followed at [facility] by Dr. Erazo. More the most recent visit with Dr. Erazo was about 3 months ago. (3) Hypogammaglobulinemia, acquired About 1 year ago, he was found to have hypogammoglobulinemia. The most recent quantitative evaluation was on August 2018. The immunoglobulin level was 203. Patient has not received any immunoglobulin infusion recently. He said he found out that exercise and weight loss has helped a lot and he does not have any symptoms. I talked with him that I will repeat the quantitative immunoglobulin levels and will decide on if patient will need IVIG infusion. I talked with him that the threshold for infusion is immunoglobulin G less than 400. Patient voiced understanding. Unfortunately, the lab I ordered was canceled which I do not know the reason. I talked with the patient that I will try to repeat when he comes back from the [facility] second opinion.
--- NOTE | 2019-02-14 09:44 | ONC.SCHED ---
Called Dr. Erazo's office. They will get Arsen on the schedule in the next few weeks and call Patient with schedule date. Dr. Erazo would like to talk to Dr. Betancourt, gave his numerical pager # to Dr. Betancourt ( [facility]) [phone]
[2019-03-04 12:18] LABS: Beta-2-Microglobulin 2.11
== END ==
PROVIDERS: Family Provider Internal Medicine Hematology & Oncology; PCP Internal Medicine; Visit Provider Internal Medicine Hematology & Oncology
DX: R59.0 Localized enlarged lymph nodes (principal); D80.1 Nonfamilial hypogammaglobulinemia; Z85.72 Personal history of non-Hodgkin lymphomas
CPT/HCPCS: 36415; 80053; 82232; 82784; 83615; 85025; 99205; 99214; 99215